=== PATIENT | female | born 1980 | race Caucasian/White ===

== ENCOUNTER 2016-10-12 10:45 | Inpatient (IN) | payer BC ==
[~2016-10-12] VITALS: Ht 154.9 cm; Wt 63.1 kg
[2016-10-12 10:53] VITALS: BP 1215/76
--- OUTSIDE RECORDS SUMMARY | 2016-10-12 10:55 | External Medical Summary Rpt ---
Author Author [employer] Organization [employer] Address Unknown Phone Unavailable Purpose Continuity of Care Document - through 2016
--- OUTSIDE RECORDS SUMMARY | 2016-10-12 10:55 | External Medical Summary Rpt ---
Author Author , ARLINE NUNN Address Unknown Phone [email or web address] Purpose Continuity of Care Document - 05-28-2015 through 2016 Results Labs Lab Lab Date Result Refere Interp Status Commen Order Detail nces retati t Range on Drugs identified in Unspecified specimen by Screen method (09-30-2016 10:20) Drugs COLLECT complet identif 017 ION ed ied in 10:20 ONLY Unspeci fied specime n by Screen method Drugs identified in Unspecified specimen by Screen method (09-02-2016 15:30) Drugs COLLECT complet identif 017 ION ed ied in 15:30 ONLY Unspeci fied specime n by Screen method Drugs identified in Unspecified specimen by Screen method (08-18-2016 16:04) Drugs COLLECT complet identif 017 ION ed ied in 16:04 ONLY Unspeci fied specime n by Screen method Drugs identified in Unspecified specimen by Screen method (08-06-2016 15:38) Drugs COLLECT complet identif 017 ION ed ied in 15:38 ONLY Unspeci fied specime n by Screen method Drugs identified in Unspecified specimen by Screen method (07-29-2016 15:54) Drugs COLLECT complet identif 017 ION ed ied in 15:54 ONLY Unspeci fied specime n by Screen method
--- OUTSIDE RECORDS SUMMARY | 2016-10-12 10:55 | External Medical Summary Rpt ---
Author Author , ARLINE NUNN Address Unknown Phone [email or web address] Purpose Continuity of Care Document - 05-28-2015 [...]
--- OUTSIDE RECORDS SUMMARY | 2016-10-12 10:55 | External Medical Summary Rpt ---
Demographics Preferred Language Vietnamese Marital Status Unknown Judaism Affiliation Unknown Race Unknown Ethnic Group Unknown Author Author , ARLINE NUNN Address Unknown Phone Immunization Unable to retrieve immunization data due to connection failure with Immunization Registry. Please try again later.
--- OUTSIDE RECORDS SUMMARY | 2016-10-12 10:55 | External Medical Summary Rpt ---
Demographics Preferred Language Mohawk Marital Status Unknown Zoroastrianism Affiliation Unknown Race Unknown Ethnic Group Unknown Author Author , ARLINE NUNN Address Unknown Phone Immunization Unable to retrieve immunization data due to connection failure with Immunization Registry. Please try again later.
--- OUTSIDE RECORDS SUMMARY | 2016-10-12 10:55 | External Medical Summary Rpt ---
Author Author [employer], [employer] Organization [employer] Address Unknown Phone Unavailable Results Drugs identified in Unspecified specimen by Screen method Observa Value Referen Units Interpr Notes Date tion ce etation Range Drugs COLLECT No No No SPECIME Sep 30 identif ION informa informa informa N SENT 2016 ied in ONLY tion in tion in tion in TO 10:20 Unspeci source source source ANOTHER AM fied data data data LAB specime FOR n by ANALYSI Screen S.RESUL method TS NOT RETAINE D AT [facility] Drugs identified in Unspecified specimen by Screen method Observa Value Referen Units Interpr Notes Date tion ce etation Range Drugs COLLECT No No No SPECIME Sep 02 identif ION informa informa informa N SENT 2016 ied in ONLY tion in tion in tion in TO 3:30 PM Unspeci source source source ANOTHER fied data data data LAB specime FOR n by ANALYSI Screen S.RESUL method TS NOT RETAINE D AT [facility] Drugs identified in Unspecified specimen by Screen method Observa Value Referen Units Interpr Notes Date tion ce etation Range Drugs COLLECT No No No SPECIME Aug 18 identif ION informa informa informa N SENT 2016 ied in ONLY tion in tion in tion in TO 4:04 PM Unspeci source source source ANOTHER fied data data data LAB specime FOR n by ANALYSI Screen S.RESUL method TS NOT RETAINE D AT [facility] Drugs identified in Unspecified specimen by Screen method Observa Value Referen Units Interpr Notes Date tion ce etation Range Drugs COLLECT No No No SPECIME August 06 identif ION informa informa informa N SENT 2016 ied in ONLY tion in tion in tion in TO 3:38 PM Unspeci source source source ANOTHER fied data data data LAB specime FOR n by ANALYSI Screen S.RESUL method TS NOT RETAINE D AT [facility] Drugs identified in Unspecified specimen by Screen method Observa Value Referen Units Interpr Notes Date tion ce etation Range Drugs COLLECT No No No SPECIME May 16 identif ION informa informa informa N SENT 2017 ied in ONLY tion in tion in tion in TO 3:54 PM Unspeci source source source ANOTHER fied data data data LAB specime FOR n by ANALYSI Screen S.RESUL method TS NOT RETAINE D AT [facility] HCT Observa Value Referen Units Interpr Notes Date tion ce etation Range HCT 32 37 - 47 % Low No May 19 informa 2016 tion in 5:54 AM source data TYPE SC(WRISTBAND REQUIRED) Observa Value Referen Units Interpr Notes Date tion ce etation Range BLOOD AP . . Normal No May 18 TYPE informa 2016 tion in 7:38 AM source data ANTIBOD NEGATIV . . Normal No May 18 Y E informa 2016 SCREEN tion in 7:53 AM source data UPREG Observa Value Referen Units Interpr Notes Date tion ce etation Range UPREG NEGATIV . No Normal No May 18 E informa informa 2016 tion in tion in 7:14 AM source source data data URINALYSIS/REFLEX TO UC Observa Value Referen Units Interpr Notes Date tion ce etation Range COLOR,U Yellow . No Normal No May 14 RINE informa informa 2016 tion in tion in 3:25 PM source source data data APPEARA Clear . No Normal No May 14 NCE,URI informa informa 2016 NE tion in tion in 3:25 PM source source data data GLUCOSE Negativ NEGATIV No Normal No May 14 , URINE e E informa informa 2016 (UA) tion in tion in 3:25 PM source source data data BILIRUB Negativ NEGATIV No Normal No May 14 IN,URIN e E informa informa 2016 E tion in tion in 3:25 PM source source data data KETONES Negativ NEGATIV No Normal No May 14 ,URINE e E informa informa 2016 tion in tion in 3:25 PM source source data data SPECIFI 1.025 1.003 - No Normal No May 14 C 1.035 informa informa 2016 GRAVITY tion in tion in 3:25 PM ,URINE source source data data URINE Negativ NEGATIV No Normal No May 14 BLOOD e E informa informa 2016 tion in tion in 3:25 PM source source data data URINE 7.0 5.0 - No Normal No May 14 pH 8.0 informa informa 2016 tion in tion in 3:25 PM source source data data PROTEIN Negativ NEGATIV No Normal No May 14 ,URINE e E informa informa 2016 DIP tion in tion in 3:25 PM source source data data UROBILI 0.2 0.2 No Normal No May 14 NOGEN,U informa informa 2016 RINE tion in tion in 3:25 PM source source data data NITRATE Negativ NEGATIV No Normal No May 14 ,URINE e E informa informa 2016 tion in tion in 3:25 PM source source data data LEUKOCY Negativ NEGATIV No Normal No May 14 TE e E informa informa 2016 ESTERAS tion in tion in 3:25 PM E source source ,URINE data data WBC, 0-3 0 - 3 No Normal No May 14 URINE informa informa 2016 tion in tion in 3:44 PM source source data data RBC,URI 0-3 0 - 3 No Normal No May 14 NE informa informa 2016 tion in tion in 3:44 PM source source data data EPITHEL 4-10 0 - 3 No Normal No May 14 IAL informa informa 2016 CELL, tion in tion in 3:44 PM URINE source source data data BACTERI TRACE NONE No Normal No May 14 A,URINE SEEN informa informa 2016 tion in tion in 3:44 PM source source data data MUCUS,U TRACE NONE No Normal No May 14 RINE SEEN informa informa 2016 tion in tion in 3:44 PM source source data data AMORPHO TRACE . No Normal No May 14 US informa informa 2016 SEDIMEN tion in tion in 3:44 PM T,UR source source data data UPREG Observa Value Referen Units Interpr Notes Date tion ce etation Range UPREG NEGATIV . No Normal No May 14 E informa informa 2016 tion in tion in 3:37 PM source source data data CXR Observa Value Referen Units Interpr Notes Date tion ce etation Range TEXT ZOROASTRIANISM No No No No May 14 DIAGNOS HEALTH informa informa informa informa 2016 IS tion in tion in tion in tion in 2:59 PM BATTERY RICHMON source source source source D\.br\8 data data data data [address]\ .br\[place] [address]\. br\004- [phone] 1\.br\\ .br\[facility]\ .br\031 [address]\ .br\\.b r\Vera d\.br\\ .br\PAT IENT NAME: ANNETTE ANDREW 773\.br \: [id number]\. br\ATTE NDING: Nishant FALL MD DATE OF EXAM: 6\.br\P RIMARY CARE: LOLA ERNANDEZ MD LOCATIO N: SDS\.br \\.br\O RDERING PHYSICI AN: Nishant FALL MD\.br\ PROCEDU RE(s): CHEST PA LAT\.br \ORDER NUMBER( s): [id number] 59\.br\ \.br\CC : Robi FALL MD; LOLA ERNANDEZ MD\.br\ \.br\\. br\\.br \PROCED URE: CHEST PA LAT-\.b r\\.br\ HISTORY : PRE OP\.br\ \.br\FI NDINGS: The lungs are clear and there is no evidenc e of effusio n or\.br\ other pleural disease . The cardiac silhoue tte and mediast inum appear to\.br\ be normal in size and configu ration. The bony thorax appears intact. \.br\\. br\IMPR ESSION: No acute cardiop ulmonar y finding s.\.br\ \.br\Th is report was finaliz ed on 05/28/19 16 2:59 PM by Prateek Garnett MD.\.br \\.br\\ .br\DIC TATED BY: LOLA GARNETT MD\.br\ DICTATE D DATE/TI ME: 6 1459\.b r\TRANS CRIBED DATE/TI ME: 6 1459\.b r\\.br\ CC: Robi FALL MD; LOLA ERNANDEZ MD\.br\ MRSA SCREEN Observa Value Referen Units Interpr Notes Date tion ce etation Range TEXT ------- . . Normal No May 14 DIAGNOS ------- informa 2015 IS ------- tion in 2:56 PM BATTERY ------- source ------- data ------- ------- ------- ------- ------- ------- ------- ------- -RUN DATE: 6 [employer]. LIVE* * PAGE 1RUN TIME: 614 Specime n Inquiry ------- ------- ------- ------- ------- ------- ------- ------- ------- ------- ------- ------- ------- -JACKIE T: ANNETTE ANDREW ACCT: [id number] LOC: SDS U: [id number] AGE/SX: 35/F ROOM: RE [facility] DR: Robi FALL MD : 982 BED: DIS: STATUS: PRE SDC TLOC:-- ------- ------- ------- ------- ------- ------- ------- ------- ------- ------- ------- ------- ------S PEC #: [id number] ELIER: STATUS: COMP REQ #: [id number] RECD: [facility] E: [place] ENTR: SOF[address]A DR: CIPRIANO MORGAN C:ORDER ED: MRSA--- ------- ------- ------- ------- ------- ------- ------- ------- ------- ------- ------- ------- ----- Procedu re Result- ------- ------- ------- ------- ------- ------- ------- ------- ------- ------- ------- ------- ------- MRSA SCREEN Final NO METHICI LLIN RESISTA NT STAPHYL OCOCCUS AUREUS ISOLATE D------ ------- ------- ------- ------- ------- ------- ------- ------- ------- ------- ------- ------- -- END OF REPORT CBC (HEMOGRAM) Observa Value Referen Units Interpr Notes Date tion ce etation Range WBC 8.6 4.8 - THOUS Normal No Mar 14 10.8 2015 tion in 3:21 PM source data RBC 3.63 4.20 - m/uL Low No May 14 5.40 2015 tion in 3:21 PM source data HGB 11.8 12.0 - g/dL Low No May 14 16.0 2015 tion in 3:21 PM source data HCT 36 37 - 47 % Low No Mar 14 inform2015 tion in 3:21 PM source data MEAN 99.4 81.0 - fL High No May 14 CORPUSC 99.0 2015 ULAR tion in 3:21 PM VOLUME source data MEAN 32.5 27.0 - uug High No May 14 CORPUSC 31.0 2015 ULAR tion in 3:21 PM HEMOGLO source BIN data MEAN 32.7 30.0 - g/dL Normal No May 27 CORPUSC 37.0 informa 2015 ULAR tion in 3:21 PM HGB source CONC data RED 12.2 11.5 - % Normal No May 27 CELL 14.5 informa 2015 DISTRIB tion in 3:21 PM UTION source WIDTH data PLATELE 264 130 - THOUS Normal No May 27 T COUNT 400 inform2015 tion in 3:21 PM source data
--- OUTSIDE RECORDS SUMMARY | 2016-10-12 10:55 | External Medical Summary Rpt ---
[...] S.RESUL method TS NOT RETAINE D AT [facility] HCT Observa Value Referen Units Interpr Notes [...] Notes Date tion ce etation Range TEXT SIKHISM No No No No May 14 DIAGNOS HEALTH informa informa informa informa 2016 IS tion in tion in tion in tion in 2:59 PM BATTERY RICHMON source source source source D\.br\8 data data data data [address]\ .[place] [address]\. br\403- [phone] 1\.br\\ .br\[facility]\ .br\031 [address]\ .br\\.b r\Vera d\.br\\ .br\PAT IENT NAME: ANNETTE ANDREW 773\.br \: [phone]\. br\ATTE NDING: Nishant FALL MD DATE OF EXAM: 6\.br\P RIMARY CARE: LOLA ERNANDEZ MD LOCATIO N: SDS\.br \\.br\O RDERING PHYSICI AN: Nishant FALL MD\.br\ PROCEDU RE(s): CHEST PA LAT\.br \ORDER NUMBER( s): [id number] 59\.br\ \.br\CC : Robi FALL MD; LOLA [...] ------- ------- ------- ------- -RUN DATE: 6 [employer]. LIVE* * PAGE 1RUN TIME: 614 Specime n Inquiry ------- ------- ------- ------- ------- ------- ------- ------- ------- ------- ------- ------- ------- -JACKIE T: ANNETTE ANDREW ACCT: [id number] LOC: SDS U: [id number] AGE/SX: 35/F ROOM: RE [facility] DR: Robi FALL MD : 982 BED: DIS: STATUS: PRE SDC TLOC:-- ------- ------- ------- ------- ------- ------- ------- ------- ------- ------- ------- ------- ------S PEC #: [id number] ELIER: STATUS: COMP REQ #: [id number] RECD: SUBM [facility] E: [place] ENTR: SOF[address]A DR: CIPRIANO MORGAN [...]
[2016-10-12] MEDS ORDERED: LAMICTAL 100 M100 MG PO (11:02)
[2016-10-12] MEDS ORDERED: WELLBUTRIN XL150 MG PO (11:02)
--- NOTE | 2016-10-12 11:49 | Emergency Room Report ---
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 N Clinical Suspician of Infection? N Mental Status: 1 - Regular (Normal Baseline) Sepsis Risk:Low Sepsis Risk Have you (or family members/close friends) recently traveled outside the [place]? N If Yes, where/when: Have you had exposure to infectious disease within the past month? N TB? Other? Specify: His old white female who was traveling in [place] and 2 days later she developed LEFT groin abscess was seen in urgent care underwent an I and D and started on Bactrim and Keflex. The next day she started developing the swelling she continued to get worse until she arrived back home. She denies having fever or chills nausea vomiting abdominal pain, LOSS OF LIMB FUNCTION OR SKIN COLOR CHAGES. Source patient, RN notes reviewed, family ALLERGIES Coded Allergies: Penicillins (10/12/16) Home Medications Reported Medications BUPROPION HCL (Wellbutrin XL 150MG) 150 MG PO DAILY Lamotrigine (Lamictal 100Mg) 100 MG PO BID History Medical History General CAD? No Angina: No [place]: No Hypertension? No Hyperlipidemia? No CHF? No DVT? No PE? No COPD? No Asthma? No Anemia? No GERD? No Gastric ulcers? No GI Bleed? No Hernia? No Thyroid Problems? No Hypothyroidism? No CVA? No Seizures? No Diabetes? No Renal Insuffiency? No End Stage Renal Disease? No UTI? No Stones? No BPH? No GB Disease: No Nephritic Syndrome? No Asplenia? No Hepatitis? No Sickle Cell Disease? No Arthritis? No Migraines? No Cataracts? No Glaucoma? No MRSA? No HIV? No TB? No Anxiety? No Depression? No Cancer? No Site: N More? 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 Respiratory no symptoms reported Cardiovascular no symptoms reported Gastrointestinal no symptoms reported Genitourinary no symptoms reported. Musculoskeletal see HPI (left GROIN SWELLING) Psychiatric/Neurological no symptoms reported Physical Exam Vital Signs Vital Signs Date Time Temp Pulse Resp B/P Pulse O2 O2 Flow FiO2 Ox Delivery Rate 10/12 1053 98.1 572 09 0973/76 100 - WBC >12,000 or <4,000 or 10% bands? 2 or more SIRS Criteria Met? B/P:1215/76 MAP:455 Creatinine >2.0? UA output<0.5ml/kg/hr for 2 hrs? Platelet count >100,000? Lactate >2.0mmol/1? INR >1.2 or PTT > than 60 sec? Evidence of Organ Dysfunction? Provider documented clinical suspician of infection? N Sepsis Criteria Count: 1 Sepsis Risk: Low Sepsis Risk General Appearance normal appearance, WD/WN Eye Exam - bilateral eye normal exam, bilateral eye PERRL, bilateral eye EOMI Ear, Nose, Throat hearing grossly normal, normal ENT inspection Neck normal inspection, non-tender, supple, full range of motion Respiratory Status Yes: trachea midline, chest symmetrical, non tender chest. No: respiratory distress. Lung Sounds bilateral: normal breath sounds, lungs clear. Cardiovascular normal exam, regular rate/rhythm, no peripheral edema, no gallop, no JVD, no murmur, no rub, normal peripheral pulses Gastrointestinal normal bowel sounds, normal exam, non tender, soft, no organomegaly Back normal inspection, no CVA tenderness, no vertebral tenderness Extremities TENDER left INGUINAL LYMPH NODES, LESS THAN 1 CM INCISION AT THE MID INGUINAL REGION. wITH PURULENT DISCHARGE, THERE IS A 4 X 3" SWELLING ON THE MEDIAL ASPECT OF THE left THIGH ABOVE THE left ABDUCTOR LONGUS MUSCLE. 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 No Departure Departure Time of Disposition 1139 Disposition Still a Patient Clinical Impression Primary Impression: Abscess of groin, left Condition STABLE Referrals RUBENS KELSEY MD Additional Instructions The patient's reported that the size of the swelling 3 days ago was THE SIZE OF THE quarter. It has grown bigger. Discussed with the patient the need for blood work IV antibiotics and eye surgery consult after she failed outpatient therapy. I called Dr. KELSEY who advised the patient to remain nothing by mouth. Admitted under under observation to him. He agreed with vancomycin and Levaquin, HEENT, and assess her and decide from there. THE PATIENT AND HER WERE INVOLVED IN THE DECISION MAKING. DR. PARKINSON Discharge Counseling Counseled pt/family regarding diagnosis, medications/RX, home care ED Critical Care Critical Care No If Critical Care minutes are documented, the time involved in the performance of seperately reportable procedures was not counted toward critical care time documented. I directly delivered medical care to this critically ill and/or injured patient. Timely evaluation and treatment was necessary to address the significant organ system(s) dysfunction present in this patient. at [id number]
--- NOTE | 2016-10-12 11:49 | Emergency Room Report ---
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 N Clinical Suspician of Infection? N Mental Status: 1 - Regular (Normal Baseline) Sepsis Risk:Low Sepsis Risk Have you (or family members/close friends) recently traveled outside the [place]? N If Yes, where/when: Have you had exposure to infectious disease within the past month? N TB? Other? Specify: His old white female who was traveling in [place] [employer] [facility] 7 days ago and 2 days later she developed LEFT groin abscess was seen in urgent care underwent an I and D and started on Bactrim and Keflex. The next day she started developing the swelling she continued to get worse until she arrived back home. She denies having fever or chills nausea vomiting abdominal pain, LOSS OF LIMB FUNCTION OR SKIN COLOR CHAGES. Source patient, RN notes reviewed, family ALLERGIES Coded Allergies: Penicillins (10/12/16) Home Medications Reported Medications BUPROPION HCL (Wellbutrin XL 150MG) 150 MG PO DAILY Lamotrigine (Lamictal 100Mg) 100 MG PO BID History Medical History General CAD? No Angina: No [place]: No Hypertension? No Hyperlipidemia? No CHF? No DVT? No PE? No COPD? No Asthma? No Anemia? No GERD? No Gastric ulcers? No GI Bleed? No Hernia? No Thyroid Problems? No Hypothyroidism? No CVA? No Seizures? No Diabetes? No Renal Insuffiency? No End Stage Renal Disease? No UTI? No Stones? No BPH? No GB Disease: No Nephritic Syndrome? No Asplenia? No Hepatitis? No Sickle Cell Disease? No Arthritis? No Migraines? No Cataracts? No Glaucoma? No MRSA? No HIV? No TB? No Anxiety? No Depression? No Cancer? No Site: N More? 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 Respiratory no symptoms reported Cardiovascular no symptoms reported Gastrointestinal no symptoms reported Genitourinary no symptoms reported. Musculoskeletal see HPI (left GROIN SWELLING) Psychiatric/Neurological no symptoms reported Physical Exam Vital Signs Vital Signs Date Time Temp Pulse Resp B/P Pulse O2 O2 Flow FiO2 Ox Delivery Rate 10/12 1053 98.1 345 18 9550/76 100 - WBC >12,000 or <4,000 or 10% bands? 2 or more SIRS Criteria Met? B/P:1215/76 MAP:455 Creatinine >2.0? UA output<0.5ml/kg/hr for 2 hrs? Platelet count >100,000? Lactate >2.0mmol/1? INR >1.2 or PTT > than 60 sec? Evidence of Organ Dysfunction? Provider documented clinical suspician of infection? N Sepsis Criteria Count: 1 Sepsis Risk: Low Sepsis Risk General Appearance normal appearance, WD/WN Eye Exam - bilateral eye normal exam, bilateral eye PERRL, bilateral eye EOMI Ear, Nose, Throat hearing grossly normal, normal ENT inspection Neck normal inspection, non-tender, supple, full range of motion Respiratory Status Yes: trachea midline, chest symmetrical, non tender chest. No: respiratory distress. Lung Sounds bilateral: normal breath sounds, lungs clear. Cardiovascular normal exam, regular rate/rhythm, no peripheral edema, no gallop, no JVD, no murmur, no rub, normal peripheral pulses Gastrointestinal normal bowel sounds, normal exam, non tender, soft, no organomegaly Back normal inspection, no CVA tenderness, no vertebral tenderness Extremities TENDER left INGUINAL LYMPH NODES, LESS THAN 1 CM INCISION AT THE MID INGUINAL REGION. wITH PURULENT DISCHARGE, THERE IS A 4 X 3" SWELLING ON THE MEDIAL ASPECT OF THE left THIGH ABOVE THE left ABDUCTOR LONGUS MUSCLE. 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 No Departure Departure Time of Disposition 1139 Disposition Still a Patient Clinical Impression Primary Impression: Abscess of groin, left Condition STABLE Referrals RUBENS KELSEY MD Additional Instructions The patient's reported that the size of the swelling 3 days ago was THE SIZE OF THE quarter. It has grown bigger. Discussed with the patient the need for blood work IV antibiotics and eye surgery consult after she failed outpatient therapy. I called Dr. KELSEY who advised the patient to remain nothing by mouth. Admitted under under observation to him. He agreed with vancomycin and Levaquin, HEENT, and assess her and decide from there. THE PATIENT AND HER WERE INVOLVED IN THE DECISION MAKING. DR. PARKINSON Discharge Counseling Counseled pt/family regarding diagnosis, medications/RX, home care ED Critical Care Critical Care No If Critical Care minutes are documented, the time involved in the performance of seperately reportable procedures was not counted toward critical care time documented. I directly delivered medical care to this critically ill and/or injured patient. Timely evaluation and treatment was necessary to address the significant organ system(s) dysfunction present in this patient. at 8193
[2016-10-12 11:56] LABS: HEMOGLOBIN 11.1 g/dL (12.2-16.2); LYMPH # 1.2 K/mm3 (0.7-4.5); LYMPH % 15.6 % (10-50.0)
--- OUTSIDE RECORDS SUMMARY | 2016-10-12 12:10 | External Medical Summary Rpt ---
Author Author , ARLINE NUNN Address Unknown Phone [email or web address] Purpose Continuity of Care Document - 05-28-2015 [...]
--- OUTSIDE RECORDS SUMMARY | 2016-10-12 12:10 | External Medical Summary Rpt ---
Demographics Preferred Language Mongolian Marital Status Unknown Yarsani Affiliation Unknown Race Unknown Ethnic Group Unknown Author Author , ARLINE NUNN Address Unknown Phone Immunization Unable to retrieve immunization data due to connection failure with Immunization Registry. Please try again later.
--- OUTSIDE RECORDS SUMMARY | 2016-10-12 12:10 | External Medical Summary Rpt ---
Demographics Preferred Language Japanese Marital Status Unknown Jewish Affiliation Unknown Race Unknown Ethnic Group Unknown Author Author , ARLINE NUNN Address Unknown Phone Immunization Unable to retrieve immunization data due to connection failure with Immunization Registry. Please try again later.
--- OUTSIDE RECORDS SUMMARY | 2016-10-12 12:10 | External Medical Summary Rpt ---
Author Author , ARLINE NUNN Address Unknown Phone [email or web address] Purpose Continuity of Care Document - 05-28-2015 [...]
--- OUTSIDE RECORDS SUMMARY | 2016-10-12 12:11 | External Medical Summary Rpt ---
[...] Range Drugs COLLECT No No No SPECIME July 29 identif ION informa informa informa N SENT 2017 ied in ONLY tion in tion in tion in TO 3:54 PM Unspeci source source source ANOTHER fied data data data LAB specime FOR n by ANALYSI Screen S.RESUL method TS NOT RETAINE D AT H HCT Observa Value Referen Units Interpr Notes [...] Notes Date tion ce etation Range TEXT HOAHAOISM No No No No May 14 [facility] informa informa informa informa 2016 IS tion in tion in tion in tion in 2:59 PM [facility] source source source source D\.br\8 data data data data [facility]\ .br\[place] [address]\. br\[id number] 1\.br\\ .br\[facility]\ .br\031 [address]47\ .br\\.b r\Vera d\.br\\ .br\PAT IENT NAME: ANNETTE ANDREW 773\.br \: [id number]\. br\ATTE NDING: Nishant FALL MD DATE OF EXAM: 6\.br\P RIMARY CARE: LOLA ERNANDEZ MD LOCATIO N: SDS\.br \\.br\O RDERING PHYSICI AN: Nishant FALL MD\.br\ PROCEDU RE(s): CHEST PA LAT\.br \ORDER NUMBER( s): [id number] 59\.br\ \.br\CC : Robi FALL MD; LOLA [...] ------- ------- ------- ------- -RUN DATE: 6 [employer]. LIVE* * PAGE 1RUN TIME: 614 Specime n Inquiry ------- ------- ------- ------- ------- ------- ------- ------- ------- ------- ------- ------- ------- -JACKIE T: ANNETTE ANDREW ACCT: [id number] LOC: [facility] U: [id number] AGE/SX: 35/F ROOM: RE [facility] DR: Robi FALL MD : 982 BED: DIS: STATUS: PRE SDC TLOC:-- ------- ------- ------- ------- ------- ------- ------- ------- ------- ------- ------- ------- ------S PEC #: [id number] ELIER: STATUS: COMP REQ #: [id number] RECD: SUBM DR: Robi FALL [facility] [place]: [place] ENTR: SOF[facility]A DR: CIPRIANO MORGAN [...] RBC 3.63 4.20 - m/uL Low No Mar 14 5.40 2015 tion in 3:21 PM source data HGB 11.8 12.0 - g/dL Low No Mar 14 16.0 2015 tion in 3:21 PM source data HCT 36 37 - 47 % Low No Mar 14 2015 tion in 3:21 PM source data MEAN 99.4 81.0 - fL High No May 14 CORPUSC 99.0 2015 ULAR tion in 3:21 PM VOLUME source data MEAN 32.5 27.0 - uug High No May 14 CORPUSC 31.0 2015 ULAR tion in 3:21 PM HEMOGLO source BIN data MEAN 32.7 30.0 - g/dL Normal No May 27 CORPUSC 37.0 2015 ULAR tion in 3:21 PM HGB source CONC data RED 12.2 11.5 - % Normal No May 27 CELL 14.5 inform2015 DISTRIB tion in 3:21 PM UTION source WIDTH data PLATELE 264 130 - THOUS Normal No May 27 T COUNT 400 2015 tion in 3:21 PM source data
--- OUTSIDE RECORDS SUMMARY | 2016-10-12 12:11 | External Medical Summary Rpt ---
[...] Notes Date tion ce etation Range TEXT JEHOVAH'S WITNESS No No No No May 14 DIAGNOS HEALTH informa informa informa informa 2016 IS tion in tion in tion in tion in 2:59 PM [facility] source source source source D\.br\8 data data data data [facility]\ .br\[place] [address]\. br\[id number] 1\.br\\ .br\[facility]\ .br\031 [address]\ .br\\.b r\Vera d\.br\\ .br\PAT IENT NAME: ANNETTE ANDREW 773\.br \: [id number]\. br\ATTE NDING: Nishant FALL MD DATE OF EXAM: 6\.br\P RIMARY CARE: LOLA ERNANDEZ MD LOCATIO N: SDS\.br \\.br\O RDERING PHYSICI AN: Nishant FALL MD\.br\ PROCEDU RE(s): CHEST PA LAT\.br \ORDER NUMBER( s): [id number] 59\.br\ \.br\CC : Robi FALL MD; LOLA [...] ------- ------- ------- ------- -RUN DATE: 6 [employer]. LIVE* * PAGE 1RUN TIME: 614 Specime n Inquiry ------- ------- ------- ------- ------- ------- ------- ------- ------- ------- ------- ------- ------- -JACKIE T: ANNETTE ANDREW ACCT: [id number] LOC: [facility] U: [id number] AGE/SX: 35/F ROOM: RE [facility] DR: Robi FALL MD : 982 BED: DIS: STATUS: PRE SDC TLOC:-- ------- ------- ------- ------- ------- ------- ------- ------- ------- ------- ------- ------- ------S PEC #: [id number] ELIER: STATUS: COMP REQ #: [id number] RECD: SUBM DR: Robi FALL [facility] [...]
--- NOTE | 2016-10-12 13:35 | HISTORY AND PHYSICAL REPORT ---
History of Present Illness Chief Complaint: Abscess History of Present Illness: This is a 36-year-old female who presented to the emergency department with increasing pain and swelling along the LEFT superior/medial thigh. She developed a fairly small abscess last week while vacationing in [place] and attending a water park. She underwent bedside incision and drainage at an urgent treatment center and was placed on Bactrim / Keflex. The area continued increase in tenderness, redness, and swelling. No fevers. Past Medical History Denies: CAD, hypertension, asthma, diabetes mellitus. Surgical History Previous Surgery?Y Hysterectomy/BSO Allergies Coded Allergies: Penicillins (10/12/16) Medications: Reported Medications BUPROPION HCL (Wellbutrin XL 150MG) 150 MG PO DAILY Lamotrigine (Lamictal 100Mg) 100 MG PO BID Family history Postive for: HTN. Smoking Hx Tobacco: No Smoker: Never Smoker Type: N/A Packs/day: N/A Are you/the child exposed to second-hand smoke: No Hx of Drug Use Drug Use? No Review of Systems Constitutional No: chills, recent weight loss. Skin Positive for: swelling. No: bruising. Immune/allergy No: anaphalaxis. Eyes No: discharge. ENT No: nose bleed. Respiratory No: dyspnea on exertion. Cardiovascular No: palpitations. GI No: nausea, vomitting. (female) No: hematuria. Musculoskeletal No: myalgias. Heme No: petechia. Endocrine No: polydipsia. Neurological No: change in LOC. Psychiatric No: anxious. Physical Exam VS/I&O Vital Signs Date Time Temp Pulse Resp B/P Pulse O2 O2 Flow FiO2 Ox Delivery Rate 10/12 1232 110 16 121/57 100 10/12 1053 98.1 511 70 6682/76 100 Exam General appearance no acute distress Neck full ROM Respiratory no distress Cardiovascular regular rate and rhythm Abdomen soft Extremities moves all Musculoskeletal full ROM Neurological CNII-XIII grossly intact, normal speech Psychiatric normal mood Skin abcess location (LLE), abcess size (10cm) Dx/assessment/plan Problem List 1. Abscess of groin, left Code status: full code Discussed with: patient Plan: Observation admission IV antibiotics Nothing by mouth after midnight for incision and drainage in the morning - I have discussed the risks and benefits and she agrees to proceed at 3635
[2016-10-12 13:48] VITALS: BP 121/57
--- NOTE | 2016-10-12 14:00 | CONSULT NOTE ---
Pharmacokinetic Consult Date of consult: 10/12/16 Time of consult: 1359 Referring provider: DR. KELSEY Reason for consult: VANCOMYCIN DOSING Allergies: Coded Allergies: Penicillins (10/12/16) Home Medications: Reported Medications BUPROPION HCL (Wellbutrin XL 150MG) 150 MG PO DAILY Lamotrigine (Lamictal 100Mg) 100 MG PO BID Height (feet): 5 Height (inches): 1.00 Medical History: CAD? No Angina: No GA: No Hypertension? No Hyperlipidemia? No CHF? No DVT? No PE? No COPD? No Asthma? No Anemia? No GERD? No Gastric ulcers? No GI Bleed? No Hernia? No Thyroid Problems? No Hypothyroidism? No CVA? No Seizures? No Diabetes? No Renal Insuffiency? No UTI? No Stones? No BPH? No GB Disease: No Nephritic Syndrome? No Asplenia? No Hepatitis? No Sickle Cell Disease? No Arthritis? No Migraines? No Cataracts? No Glaucoma? No MRSA? No HIV? No TB? No Anxiety? No Depression? No Cancer? No Site: N More? No Labs: Laboratory Tests 10/12/16 1132: Lactic Acid 1.6 10/12/16 1132: Sodium 140, Potassium 3.5, Chloride 104, Carbon Dioxide 26, BUN 17, Creatinine 0.9, Estimated Creat Clear 77, Estimated GFR (MDRD) 71, Glucose 104, Calcium 8.9 , Total Bilirubin 0.2, AST 17, ALT 31, Alkaline Phosphatase 120 H, Total Protein 7.5, Albumin 3.4, Globulin 4.1 H, Albumin/Globulin Ratio 0.8 L, WBC 7.8, RBC 3.45 L, Hgb 11.1 L, Hct 34.6 L, MCV 100.3 H, RDW 11.8, Plt Count 316, MPV 7.1 L, Gran % 77.5, Gran # 6.1, Lymphocytes % 15.6, Monocytes % 5.6, Eosinophils % 1.1, Basophils % 0.3, Lymphocytes # 1.2, Monocytes # 0.4, Eosinophils # 0.1, Basophils # 0.0, PUBS MCHC 32.2, MCH 32.3 H Microbiology 10/12 113 BLOOD: Anaerobic Blood Culture - RECD 10/12 1132 BLOOD: Aerobic Blood Culture - RECD 10/12 1132 BLOOD: Anaerobic Blood Culture - RECD 10/12 1132 BLOOD: Aerobic Blood Culture - RECD Problem List: 1. Abscess of groin, left Plan: BASED ON PATIENT FACTORS, RECOMMEND VANCOMYCIN 1250 MG IV Q18H. PHARMACY WILL FOLLOW DAILY AND ADJUST APPROPRIATE. at 1400
[2016-10-12 15:59] VITALS: BP 109/72
[2016-10-12 16:16] VITALS: BP 107/65
[2016-10-12 19:30] VITALS: BP 107/68
[2016-10-12 20:19] VITALS: BP 107/68
[2016-10-13] VITALS (18 sets, daily range): BP systolic 102–127; BP diastolic 58–86
--- NOTE | 2016-10-13 06:59 | SURGEON PROGRESS NOTE ---
Subjective data Subjective data: Feels "fine". Objective data Vitals,I&O,and Labs: Vital signs, intake and output,and available lab data for the last 24 hours is as noted below. Vital Signs Date Time Temp Pulse Resp B/P Pulse O2 O2 Flow FiO2 Ox Delivery Rate 10/13 0406 97.8 95 18 110/69 98 ROOM AIR 10/12 2019 98.0 100 18 107/68 99 10/12 1930 98.0 100 18 107/68 99 ROOM AIR 10/12 1616 98.1 105 20 107/65 100 ROOM AIR 10/12 1559 98.5 103 20 109/72 100 ROOM AIR 10/12 1348 110 10/12 1348 98.1 110 16 121/57 10/12 1348 100 ROOM AIR 10/12 1232 110 16 121/57 100 10/12 1053 98.1 527 06 0222/76 100 10/12 1500 10/12 2300 10/13 0700 Intake Total 760 Output Total Balance 760 Intake, IV 400 Intake, Oral 360 Patient 56.7 kg 63.107 kg Weight Laboratory Tests Test Result Date Time Chemistry Sodium (mmoL/L) 140 10/12 1132 Potassium (mmoL/L) 3.5 10/12 1132 Chloride (mmoL/L) 104 10/12 1132 Carbon Dioxide (mmoL/L) 26 10/12 1132 BUN (mg/dL) 17 10/12 1132 Creatinine (mg/dL) 0.9 10/12 1132 Estimated Creat Clear (ML/MIN) 77 10/12 1132 Estimated GFR (MDRD) (ML/MIN) 71 10/12 1132 Glucose (mg/dL) 104 10/12 1132 Lactic Acid (mmol/L) 1.6 10/12 1132 Calcium (mg/dL) 8.9 10/12 1132 Total Bilirubin (mg/dL) 0.2 10/12 1132 AST (U/L) 17 10/12 1132 ALT (U/L) 31 10/12 1132 Alkaline Phosphatase (U/L) 120 10/12 1132 Total Protein (gm/dL) 7.5 10/12 1132 Albumin (gm/dL) 3.4 10/12 1132 Globulin (gm/dL) 4.1 10/12 1132 Albumin/Globulin Ratio 0.8 10/12 1132 Hematology WBC (K/MM3) 7.8 10/12 1132 RBC (M/mm3) 3.45 10/12 1132 Hgb (g/dL) 11.1 10/12 1132 Hct (%) 34.6 10/12 1132 MCV (fl) 100.3 10/12 1132 RDW (%) 11.8 10/12 113 Plt Count (K/mm3) 316 10/12 1132 MPV (fl) 7.1 10/12 1132 Gran % (%) 77.5 10/12 1132 Gran # (K/mm3) 6.1 10/12 1132 Lymphocytes % (%) 15.6 10/12 1132 Monocytes % (%) 5.6 10/12 1132 Eosinophils % (%) 1.1 10/12 1132 Basophils % (%) 0.3 10/12 1132 Lymphocytes # (K/mm3) 1.2 10/12 1132 Monocytes # (K/mm3) 0.4 10/12 113 Eosinophils # (K/mm3) 0.1 10/12 1132 Basophils # (K/MM3) 0.0 10/12 113 PUBS MCHC (g/dl) 32.2 10/12 1132 Immunology MCH (pg) 32.3 10/12 113 Assessment findings Assessment Exam General appearance: normal appearance Cardiovascular: regular rate & rhythm Respiratory: no respiratory distress Skin: LLE abscess unchanged Patient plan Diagnoses: LLE abscess Plan: OR for I&D of abscess Antibiotic Stewardship (2) Infxn that will respond? Yes Right drug,dose,and route? Yes More targeted antbx? No How long atbx needed? 10 at 0659
--- NOTE | 2016-10-13 08:11 | Operative Note ---
Surgeon/Diagnoses Surgeon/Flag Car Driver(s) Date of procedure: 10/13/16 Surgeon: MD Rosita Kelsey Diagnoses Pre-op diagnosis: LEFT lower extremity (superior medial thigh) abscess Post-op diagnosis Same Procedure Procedure Procedure: Incision and drainage of LEFT lower extremity abscess with debridement of indurated/necrotic fat Indications: ANNETTE ANDREW is a 36 year-old Female with a history of LEFT superior/medial thigh abscess that she developed while vacationing in [place] and attending a [facility] [place]. Bedside incision and drainage did not improve her symptoms. She had increasing pain and swelling and presented to the emergency department for evaluation and management. Findings: Moderate amount of thin purulent fluid throughout wound base and margin Small areas of patchy indurated/necrotic fat Size of the entire wound base was 10 x 7 x 15 cm Depth of wound was through the entire subcutaneous tissue to the level the fascial margin Procedure Description: After informed consent was obtained, the patient was taken to the operating room and placed in the supine position. General anesthesia was induced and her LEFT superior/medial thigh was prepped and draped in a sterile fashion. An elliptical incision was made overlying the central portion of the wound. The deep subcutaneous tissue was dissected with electrocautery. Thin purulent fluid was obtained for Gram stain and culture. The wound was carefully evacuated and small patchy areas of indurated/necrotic fat were excised. The dissection was taken through the subcutaneous tissue and to the level the fascial margin. The entire wound was approximately 10 cm wide, 7 cm deep, and 15 cm long. Electrocautery was utilized to achieve hemostasis. The wound was packed with moistened Kerlix that was then infiltrated with 1 percent lidocaine. Sterile dressings were applied. The patient's anesthetic agents were reversed and she was transferred to recovery in stable condition. EBL (ml): 25 Anesthesia: General Complications: No immediate Specimens: Fluid for Gram stain/culture Disposition Disposition: Stable to recovery from where she will be transferred back to the floor. at 0811
--- NOTE | 2016-10-13 08:11 | Operative Note ---
Surgeon/Diagnoses Surgeon/Investigator Fraud(s) Date of procedure: 10/13/16 Surgeon: MD Rosita Kelsey Diagnoses Pre-op diagnosis: LEFT lower extremity (superior medial thigh) abscess Post-op diagnosis Same Procedure Procedure Procedure: Incision and drainage of LEFT lower extremity abscess with debridement of indurated/necrotic fat Indications: ANNETTE ANDREW is a 36 year-old Female with a history of LEFT superior/medial thigh abscess that she developed while vacationing in [place] and attending a [facility] park. Bedside incision and drainage did not improve her symptoms. She had increasing pain and swelling and presented to the emergency department for evaluation and management. Findings: Moderate amount of thin purulent fluid throughout wound base and margin Small areas of patchy indurated/necrotic fat Size of the entire wound base was 10 x 7 x 15 cm Depth of wound was through the entire subcutaneous tissue to the level the fascial margin Procedure Description: After informed consent was obtained, the patient was taken to the operating room and placed in the supine position. General anesthesia was induced and her LEFT superior/medial thigh was prepped and draped in a sterile fashion. An elliptical incision was made overlying the central portion of the wound. The deep subcutaneous tissue was dissected with electrocautery. Thin purulent fluid was obtained for Gram stain and culture. The wound was carefully evacuated and small patchy areas of indurated/necrotic fat were excised. The dissection was taken through the subcutaneous tissue and to the level the fascial margin. The entire wound was approximately 10 cm wide, 7 cm deep, and 15 cm long. Electrocautery was utilized to achieve hemostasis. The wound was packed with moistened Kerlix that was then infiltrated with 1 percent lidocaine. Sterile dressings were applied. The patient's anesthetic agents were reversed and she was transferred to recovery in stable condition. EBL (ml): 25 Anesthesia: General Complications: No immediate Specimens: Fluid for Gram stain/culture Disposition Disposition: Stable to recovery from where she will be transferred back to the floor. at 0811
--- NOTE | 2016-10-13 08:17 | Anesthesia Record ---
Anesthesia Record Part I Total IV fluids: 800 EBL (ml): 0 Urine Output: 0 B/P: 149/88 % SaO2: 98 Pulse: 105 Resps: 12 Temp: 97.4 Patient is: Awake, Stable Stable to PACU at: 0815 at 0816
--- NOTE | 2016-10-13 08:18 | Anesthesia Record ---
Anesthesia Record Part II Discharge time: 844 Destination: Second Floor PACU nurse assessment review? Yes Patient is: Awake, Stable Anesthesia complications? No at 0818
--- NOTE | 2016-10-13 08:53 | PHARMACY CLINIC NOTE ---
Patient Demographics Patient Demographics Admission date: 10/12/16 Date: 10/13/16 Time: 0853 Allergies Coded Allergies: Penicillins (10/12/16) HEIGHT- FT: 5 IN: 1.00 K.107 VTE General Information Labs: Laboratory Tests 10/12 1132 Hematology Hgb (12.2 - 16.2 g/dL) 11.1 L Hct (37.0 - 47.0 %) 34.6 L Plt Count (142 - 424 K/mm3) 316 Disclaimer The following section includes nursing documentation that has been pulled in for pharmacy review. Patient's VTE score: 2 Patient's VTE Risk: VERY LOW RISK Clinical trial participant? No VTE prophylaxis NQF [id number] VTE prophylaxis ordered? Yes Type of prophylaxis/treatment: DUNG at 0853
[2016-10-14 04:23] VITALS: BP 122/72
[2016-10-14 07:51] VITALS: BP 115/65
--- NOTE | 2016-10-14 08:38 | POST-OP PROGRESS NOTE ---
Post Op Subjective Data Patient is post-op day 1 Subjective data: Some pain. Good ambulation. Post op objective data Vitals,I&O,and Labs: Vital signs, intake and output,and available lab data for the last 24 hours is as noted below. Vital Signs Date Time Temp Pulse Resp B/P Pulse O2 O2 Flow FiO2 Ox Delivery Rate 10/14 0803 16 10/14 0751 97.6 98 16 115/65 100 ROOM AIR 10/14 0423 97.9 88 18 122/72 100 ROOM AIR 10/14 0406 18 10/13 2353 98.0 94 18 102/58 96 ROOM AIR 10/13 1945 18 10/13 1945 98.2 111 18 112/72 99 10/13 1928 98.2 111 18 112/72 99 ROOM AIR 10/13 1610 98.2 99 18 102/64 96 10/13 1536 95 18 110/69 98 10/13 1510 98.2 99 18 112/71 99 10/13 1410 98.1 106 18 118/71 97 10/13 1341 18 10/13 1322 97.4 10/13 1310 98.2 113 18 116/69 97 10/13 1210 98.1 97 18 107/74 99 10/13 1140 98.2 92 16 108/73 99 10/13 1110 98.1 94 16 106/68 98 10/13 1040 98.0 96 18 110/76 98 10/13 1010 98.2 90 16 116/80 98 10/13 1000 97.4 90 18 127/83 100 10/13 0955 98.0 90 16 126/83 100 10/13 0940 97.6 94 18 127/86 100 10/13 0933 97.6 90 18 127/83 100 10/13 0925 97.6 90 18 127/83 100 10/13 0912 97.6 96 14 121/69 100 ROOM AIR 10/13 0906 97.6 75 13 118/77 100 ROOM AIR 10/13 0859 18 10/13 0859 97.4 108 13 119/76 99 ROOM AIR 10/13 0850 14 10/13 0850 97.4 111 14 118/79 100 ROOM AIR 10/13 0845 97.4 95 12 137/82 99 ROOM AIR 10/13 0836 12 10/13 0836 12 10/13 0835 97.4 93 13 125/85 100 ROOM AIR 10/13 1500 10/13 2300 08 0700 Intake Total 480 540 270 Output Total 0 Balance 480 540 270 Intake, IV 50 250 Intake, Oral 480 490 Intake, Tube 0 20 Irrigant Output, 0 Emesis Output, 0 Estimated Blood Loss Output, Other 0 Output, Urine 0 Patient 63.107 kg Weight Laboratory Tests Test Result Date Time Chemistry Sodium (mmoL/L) 140 10/12 1132 Potassium (mmoL/L) 3.5 10/12 1132 Chloride (mmoL/L) 104 10/12 1132 Carbon Dioxide (mmoL/L) 26 10/12 1132 BUN (mg/dL) 17 10/12 1132 Creatinine (mg/dL) 0.9 10/12 1132 Estimated Creat Clear (ML/MIN) 77 10/12 1132 Estimated GFR (MDRD) (ML/MIN) 71 10/12 1132 Glucose (mg/dL) 104 10/12 1132 Lactic Acid (mmol/L) 1.6 10/12 1132 Calcium (mg/dL) 8.9 10/12 1132 Total Bilirubin (mg/dL) 0.2 10/12 1132 AST (U/L) 17 10/12 1132 ALT (U/L) 31 10/12 1132 Alkaline Phosphatase (U/L) 120 10/12 1132 Total Protein (gm/dL) 7.5 10/12 1132 Albumin (gm/dL) 3.4 10/12 1132 Globulin (gm/dL) 4.1 10/12 1132 Albumin/Globulin Ratio 0.8 10/12 1132 Hematology WBC (K/MM3) 7.8 10/12 1132 RBC (M/mm3) 3.45 10/12 1132 Hgb (g/dL) 11.1 10/12 1132 Hct (%) 34.6 10/12 1132 MCV (fl) 100.3 10/12 1132 RDW (%) 11.8 10/12 1132 Plt Count (K/mm3) 316 10/12 1132 MPV (fl) 7.1 10/12 1132 Gran % (%) 77.5 10/12 1132 Gran # (K/mm3) 6.1 10/12 1132 Lymphocytes % (%) 15.6 10/12 1132 Monocytes % (%) 5.6 10/12 1132 Eosinophils % (%) 1.1 10/12 1132 Basophils % (%) 0.3 10/12 1132 Lymphocytes # (K/mm3) 1.2 10/12 1132 Monocytes # (K/mm3) 0.4 10/12 113 Eosinophils # (K/mm3) 0.1 10/12 113 Basophils # (K/MM3) 0.0 10/12 113 PUBS MCHC (g/dl) 32.2 10/12 1132 Immunology MCH (pg) 32.3 10/12 113 Physical Exam VS/I&O Vital Signs Date Time Temp Pulse Resp B/P Pulse O2 O2 Flow FiO2 Ox Delivery Rate 10/14 0803 16 10/14 0751 97.6 98 16 115/65 100 ROOM AIR 10/14 0423 97.9 88 18 122/72 100 ROOM AIR 10/14 0406 18 10/13 2353 98.0 94 18 102/58 96 ROOM AIR 10/13 1945 18 10/13 1945 98.2 111 18 112/72 99 10/13 1928 98.2 111 18 112/72 99 ROOM AIR 10/13 1610 98.2 99 18 102/64 96 10/13 1536 95 18 110/69 98 10/13 1510 98.2 99 18 112/71 99 10/13 1410 98.1 106 18 118/71 97 10/13 1341 18 10/13 1322 97.4 10/13 1310 98.2 113 18 116/69 97 10/13 1210 98.1 97 18 107/74 99 10/13 1140 98.2 92 16 108/73 99 10/13 1110 98.1 94 16 106/68 98 10/13 1040 98.0 96 18 110/76 98 10/13 1010 98.2 90 16 116/80 98 10/13 1000 97.4 90 18 127/83 100 10/13 0955 98.0 90 16 126/83 100 10/13 0940 97.6 94 18 127/86 100 10/13 0933 97.6 90 18 127/83 100 10/13 0925 97.6 90 18 127/83 100 10/13 0912 97.6 96 14 121/69 100 ROOM AIR 10/13 0906 97.6 75 13 118/77 100 ROOM AIR 10/13 0859 18 10/13 0859 97.4 108 13 119/76 99 ROOM AIR 10/13 0850 14 10/13 0850 97.4 111 14 118/79 100 ROOM AIR 10/13 0845 97.4 95 12 137/82 99 ROOM AIR 10/13 0836 12 10/13 0836 12 10/13 0835 97.4 93 13 125/85 100 ROOM AIR I&O 10/14 0700 Intake Total 1290 Output Total 0 Balance 1290 Intake, IV 300 Intake, Oral 970 Intake, Tube 20 Irrigant Output, 0 Emesis Output, 0 Estimated Blood Loss Output, Other 0 Output, Urine 0 Patient 63.107 kg Weight Exam General appearance no acute distress Respiratory areating well Cardiovascular regular rate and rhythm Skin abcess condition (no spreading cellulitis) Post op patient plan Diagnoses: LEFT superior/medial thigh abscess-overall, doing fairly well status post incision and drainage/debridement Plan: Ambulate, Antibiotics This inpt stay is expected to cross 2 MNs from start of care Yes Additional data: Continue IV antibiotics for the next 24 hours Possible discharge tomorrow on by mouth antibiotics Wet-to-dry dressing changes twice daily Antibiotic Stewardship (2) Current Culture Results Microbiology 10/13 740 THIGH: Antimicrobic Susceptibility - RECD 10/13 740 THIGH: Anaerobic Culture Result 4 - RECD 10/13 740 THIGH: Anaerobic Culture Result 3 - RECD 10/13 740 THIGH: Anaerobic Culture Result 2 - RECD 10/13 740 THIGH: Anaerobic Culture Result 1 - RECD 10/13 740 THIGH: Anaerobic Culture - RECD 10/13 740 THIGH: Abscess Culture - RES 10/13 740 THIGH: Gram Stain - RES 10/12 113 THIGH: Wound Culture - RES STAPHYLOCOCCUS AUREUS 10/12 1132 BLOOD: Anaerobic Blood Culture - RECD 10/12 1132 BLOOD: Aerobic Blood Culture - RECD Infxn that will respond? Yes Right drug,dose,and route? Yes More targeted antbx? No at 0849
[2016-10-14 15:37] VITALS: BP 106/59
[2016-10-14 15:49] VITALS: BP 106/59
[2016-10-14 19:54] VITALS: BP 109/72
[2016-10-14 21:30] VITALS: BP 109/72
[2016-10-15 04:46] VITALS: BP 123/89
[2016-10-15 08:00] VITALS: BP 122/67
--- NOTE | 2016-10-15 08:05 | POST-OP PROGRESS NOTE ---
Post Op Subjective Data Patient is post-op day 2 Subjective data: Feels "OK". Post op objective data Vitals,I&O,and Labs: Vital signs, intake and output,and available lab data for the last 24 hours is as noted below. Vital Signs Date Time Temp Pulse Resp B/P Pulse O2 O2 Flow FiO2 Ox Delivery Rate 10/15 0446 98.3 78 18 123/89 98 ROOM AIR 10/14 2217 18 10/14 2216 18 10/14 2130 98.1 96 18 109/72 100 10/14 1954 98.1 96 18 109/72 100 ROOM AIR 10/14 1549 98.4 101 18 106/59 100 10/14 1537 98.4 101 18 106/59 100 ROOM AIR 10/14 1510 16 10/14 1111 16 10/14 0835 16 10/14 1500 10/14 2300 10/15 0700 Intake Total 720 240 510 Output Total Balance 720 240 510 Intake, IV 270 Intake, Oral 720 240 240 Laboratory Tests Test Result Date Time Chemistry Sodium (mmoL/L) 140 10/12 1132 Potassium (mmoL/L) 3.5 10/12 1132 Chloride (mmoL/L) 104 10/12 1132 Carbon Dioxide (mmoL/L) 26 10/12 1132 BUN (mg/dL) 17 10/12 1132 Creatinine (mg/dL) 0.9 10/12 1132 Estimated Creat Clear (ML/MIN) 77 10/12 1132 Estimated GFR (MDRD) (ML/MIN) 71 10/12 1132 Glucose (mg/dL) 104 10/12 1132 Lactic Acid (mmol/L) 1.6 10/12 1132 Calcium (mg/dL) 8.9 10/12 1132 Total Bilirubin (mg/dL) 0.2 10/12 1132 AST (U/L) 17 10/12 1132 ALT (U/L) 31 10/12 1132 Alkaline Phosphatase (U/L) 120 10/12 1132 Total Protein (gm/dL) 7.5 10/12 1132 Albumin (gm/dL) 3.4 10/12 1132 Globulin (gm/dL) 4.1 10/12 1132 Albumin/Globulin Ratio 0.8 10/12 1132 Hematology WBC (K/MM3) 7.8 10/12 1132 RBC (M/mm3) 3.45 10/12 1132 Hgb (g/dL) 11.1 10/12 113 Hct (%) 34.6 10/13 1131 MCV (fl) 100.3 10/12 113 RDW (%) 11.8 10/13 1131 Plt Count (K/mm3) 316 10/13 1131 MPV (fl) 7.1 10/12 113 Gran % (%) 77.5 10/12 113 Gran # (K/mm3) 6.1 10/12 1132 Lymphocytes % (%) 15.6 10/12 1132 Monocytes % (%) 5.6 10/12 1132 Eosinophils % (%) 1.1 10/12 113 Basophils % (%) 0.3 10/13 1131 Lymphocytes # (K/mm3) 1.2 10/13 1131 Monocytes # (K/mm3) 0.4 10/13 1131 Eosinophils # (K/mm3) 0.1 10/12 113 Basophils # (K/MM3) 0.0 10/13 1131 PUBS MCHC (g/dl) 32.2 10/13 1131 Immunology MCH (pg) 32.3 10/13 1131 Toxicology Vancomycin Trough (mcg/mL) 5.2 10/14 0925 Physical Exam VS/I&O Vital Signs Date Time Temp Pulse Resp B/P Pulse O2 O2 Flow FiO2 Ox Delivery Rate 10/15 0446 98.3 78 18 123/89 98 ROOM AIR 10/14 2217 18 10/14 2216 18 10/14 2130 98.1 96 18 109/72 100 10/14 1954 98.1 96 18 109/72 100 ROOM AIR 10/14 1549 98.4 101 18 106/59 100 10/14 1537 98.4 101 18 106/59 100 ROOM AIR 10/14 1510 16 10/14 1111 16 10/14 0835 16 I&O 10/15 0700 Intake Total 1470 Output Total Balance 1470 Intake, IV 270 Intake, Oral 1200 Exam General appearance no acute distress Respiratory no distress Cardiovascular regular rate and rhythm Skin abcess condition (no spreading cellulitis) Post op patient plan Diagnoses: Left medial thigh abscess-overall, doing very well status post incision and drainage/debridement Plan: Ambulate, Antibiotics, d/c home This inpt stay is expected to cross 2 MNs from start of care Yes Antibiotic Stewardship (2) Infxn that will respond? Yes Right drug,dose,and route? Yes More targeted antbx? No at 0805
[2016-10-15] MEDS ORDERED: BACTRIM DS TAB1 EACH PO (08:11)
[2016-10-15] MEDS ORDERED: NORCO 325 MG-51 TAB PO (08:11)
--- NOTE | 2016-10-15 08:12 | Discharge Summary Report ---
General Admit date: 10/12/16 Discharge date: 10/15/16 Admission Dx: Left medial/superior thigh abscess with cellulitis Discharge Dx: Same Hospital course: This is a 36-year-old female who presented to the emergency department with increasing pain and swelling along the LEFT superior/medial thigh. She developed a fairly small abscess last week while vacationing in [place] and attending a water park. She underwent bedside incision and drainage at an urgent treatment center and was placed on Bactrim / Keflex. The area continued increase in tenderness, redness, and swelling. No fevers. She was placed on IV antibiotics and admitted to the surgical service. The following morning she underwent incision and drainage of a large complex abscess with patchy areas of necrosis. Postoperatively, she convalesced well. She underwent twice daily wet-to-dry dressing changes without difficulty. Both the cellulitis and induration continued to improve and she was deemed appropriate for discharge on the morning of postoperative day 2. She was discharged with continuation of twice daily dressing changes and a prescription to complete a course of Bactrim. Condition at discharge: improved Problem List Medical Problems Abscess of groin, left Allergies Coded Allergies: Penicillins (10/13/16) Med Rec [place] summary Medications Reported Medications BUPROPION HCL (Wellbutrin XL 150MG) 150 MG PO DAILY Lamotrigine (Lamictal 100Mg) 100 MG PO BID Txs and Procedures Treatments and Procedures: Incision and drainage/debridement of complex left superior/medial thigh abscess Labs: Laboratory Tests 10/14/16 0925: Vancomycin Trough 5.2 L 10/12/16 1132: Lactic Acid 1.6 10/12/16 1132: Sodium 140, Potassium 3.5, Chloride 104, Carbon Dioxide 26, BUN 17, Creatinine 0.9, Estimated Creat Clear 77, Estimated GFR (MDRD) 71, Glucose 104, Calcium 8.9 , Total Bilirubin 0.2, AST 17, ALT 31, Alkaline Phosphatase 120 H, Total Protein 7.5, Albumin 3.4, Globulin 4.1 H, Albumin/Globulin Ratio 0.8 L, WBC 7.8, RBC 3.45 L, Hgb 11.1 L, Hct 34.6 L, MCV 100.3 H, RDW 11.8, Plt Count 316, MPV 7.1 L, Gran % 77.5, Gran # 6.1, Lymphocytes % 15.6, Monocytes % 5.6, Eosinophils % 1.1, Basophils % 0.3, Lymphocytes # 1.2, Monocytes # 0.4, Eosinophils # 0.1, Basophils # 0.0, PUBS MCHC 32.2, MCH 32.3 H Microbiology Date/Time Procedure - Status Source Growth 10/13 740 Antimicrobic Susceptibility - RECD THIGH 10/13 740 Anaerobic Culture Result 4 - RECD THIGH 10/13 740 Anaerobic Culture Result 3 - RECD THIGH 10/13 740 Anaerobic Culture Result 2 - RECD THIGH 10/13 740 Anaerobic Culture Result 1 - RECD THIGH 10/13 740 Anaerobic Culture - RECD THIGH 10/13 740 Abscess Culture - RES THIGH STAPHYLOCOCCUS AUREUS 10/13 0741 Gram Stain - RES THIGH 10/12 1132 Wound Culture - COMP THIGH STAPHYLOCOCCUS AUREUS 10/12 1132 Anaerobic Blood Culture - RES BLOOD 10/12 1132 Aerobic Blood Culture - RES BLOOD 10/12 1132 Anaerobic Blood Culture - RES BLOOD 10/12 1132 Aerobic Blood Culture - RES BLOOD at 0815
[2016-10-15 09:37] VITALS: BP 122/67
--- NOTE | 2016-10-15 09:46 | CONSULT NOTE ---
Pharmacokinetic Consult Date of consult: 10/15/16 Time of consult: 944 Referring provider: DR. KELSEY Reason for consult: VANCOMYCIN TROUGH LEVEL Allergies: Coded Allergies: Penicillins (10/13/16) Home Medications: Reported Medications BUPROPION HCL (Wellbutrin XL 150MG) 150 MG PO DAILY Lamotrigine (Lamictal 100Mg) 100 MG PO BID Height (feet): 5 Height (inches): 1.00 Medical History: CAD? No Angina: No [place]: No Hypertension? No Hyperlipidemia? No CHF? No DVT? No PE? No COPD? No Asthma? No Anemia? No GERD? No Gastric ulcers? No GI Bleed? No Hernia? No Thyroid Problems? No Hypothyroidism? No CVA? No Seizures? No Diabetes? No Renal Insuffiency? No UTI? No Stones? No BPH? No GB Disease: No Nephritic Syndrome? No Asplenia? No Hepatitis? No Sickle Cell Disease? No Arthritis? No Migraines? No Cataracts? No Glaucoma? No MRSA? No HIV? No TB? No Anxiety? No Depression? No Cancer? No Site: N More? No Labs: VANCOMYCIN TROUGH LEVEL: 5.2 MCG/ML Problem List: 1. Abscess of groin, left Plan: BASED ON VANCOMYCIN TROUGH LEVEL, RECOMMEND CHANGING DOSE AND INTERVAL TO VANCOMYCIN 1000 MG IV Q8H. PATIENT IS BEING DISCHARGED TODAY ON BACTRIM. at 0983
--- NOTE | 2016-10-15 09:46 | CONSULT NOTE ---
Pharmacokinetic Consult Date of consult: 10/15/16 Time of consult: 944 Referring provider: DR. KELSEY Reason for consult: VANCOMYCIN TROUGH LEVEL Allergies: Coded Allergies: Penicillins (10/13/16) Home Medications: Reported Medications BUPROPION HCL (Wellbutrin XL 150MG) 150 MG PO DAILY Lamotrigine (Lamictal 100Mg) 100 MG PO BID Height (feet): 5 Height (inches): 1.00 Medical History: CAD? No Angina: No [place]: No Hypertension? No Hyperlipidemia? No CHF? No DVT? No PE? No COPD? No Asthma? No Anemia? No GERD? No Gastric ulcers? No GI Bleed? No Hernia? No Thyroid Problems? No Hypothyroidism? No CVA? No Seizures? No Diabetes? No Renal Insuffiency? No UTI? No Stones? No BPH? No GB Disease: No Nephritic Syndrome? No Asplenia? No Hepatitis? No Sickle Cell Disease? No Arthritis? No Migraines? No Cataracts? No Glaucoma? No MRSA? No HIV? No TB? No Anxiety? No Depression? No Cancer? No Site: N More? No Labs: VANCOMYCIN TROUGH LEVEL: 5.2 MCG/ML Problem List: 1. Abscess of groin, left Plan: BASED ON VANCOMYCIN TROUGH LEVEL, RECOMMEND CHANGING DOSE AND INTERVAL TO VANCOMYCIN 1000 MG IV Q8H. PATIENT IS BEING DISCHARGED TODAY ON BACTRIM. at 0967
[2016-10-15 10:33] VITALS: BP 122/67
== END 2016-10-15 10:32 | disposition home or self-care (01) | DRG 572 ==
LOC: ER 10:45 → 2ND 12:01
PROVIDERS: Emergency Medicine; Surgery
PROC: 0HBJXZZ Excision of Left Upper Leg Skin, External Approach (ICD-10-PCS; principal; 2016-10-13 07:06)
DX: L02.416 Cutaneous abscess of left lower limb (principal); B95.7 Other staphylococcus as the cause of diseases classified elsewhere; L03.116 Cellulitis of left lower limb
CPT/HCPCS: J2405; J3370